=== PATIENT | male | born 1985 | race Asian ===

== ENCOUNTER 2018-07-27 11:52 | Emergency (ER) | payer MEDICAID ==
[~2018-07-27] VITALS: Wt 71.2 kg
[2018-07-27 11:55] VITALS: BP 139/84; PULSE 82; RESP 18
--- NOTE | 2018-07-27 14:16 | ERD ---
ER Documentation Chief Complaint Chief Complaint FELL WHILE PLAYING BASKETBALL, HIT NOSE AND CHEST HPI 33-year-old male, presents to the emergency department, for evaluation of facial injuries that occurred today at 9 AM while the patient was playing basketball. Medications taken: None. the patient denies Loss of consciousness. ROS All systems reviewed and are negative except as per history of present illness. Medications Home Meds Active Scripts Acetaminophen* (Tylenol*) 325 Mg Tablet, 2 TAB PO Q8 PRN for PAIN AND OR ELEVATED TEMP, #20 TAB Prov:MAC HAHN MD 07/27/18 Ibuprofen* (Motrin*) 400 Mg Tab, 400 MG PO Q6H PRN for PAIN AND OR ELEVATED TEMP, #20 TAB Prov:MAC HAHN MD 07/27/18 Allergies Allergies: Coded Allergies: No Known Allergy (Unverified , 07/27/18) FmHx Family History: diabetes, coronary disease Physical Exam Vitals Vital Signs Date Temp Pulse Resp B/P (MAP) Pulse Ox O2 O2 Flow FiO2 Time Delivery Rate 07/27/18 98.1 82 18 139/84 99 11:55 (102) Physical Exam Const: No acute distress Head: Atraumatic Eyes: Normal Conjunctiva ENT: Nasal skin abrasion with edema but no gross deformity, no septal hematoma. No dental injuries. Neck: Full range of motion. No meningismus. Resp: Anterior chest wall tender to palpation, no deformity, no crepitus, no ecchymosis. Lungs clear to auscultation bilaterally Cardio: Regular rate and rhythm, no murmurs Abd: Soft, non tender, non distended. Normal bowel sounds Skin: No petechiae or rashes Back: No midline or flank tenderness Ext: No cyanosis, or edema Neur: Awake and alert Psych: Normal Mood and Affect Results 24 hrs Current Medications Medications Dose Sig/Jaiden Start Time Status Last (Trade) Ordered Route PRN Stop Time Admin Dose Reason Admin 650 mg ONCE ONCE 07/27/18 DC 07/27/18 Acetaminophen PO 14:30 14:36 (Tylenol 07/27/18 14:31 Tab) Ibuprofen 400 mg ONCE ONCE 07/27/18 DC 07/27/18 (Motrin) PO 14:30 14:36 07/27/18 14:31 DIAGNOSTIC IMAGING REPORT Patient: INOCENCIO GILLETTE : 1985 Age: 33 Sex: M MR #: [id number] DOS: 07/27/18 1422 Ordering MD: MAC HAHN MD Location: [facility] Room/Bed: PROCEDURE: XR Chest. CLINICAL INDICATION: Fall, chest pain TECHNIQUE: PA and lateral views of the chest were obtained. COMPARISON: None available FINDINGS: The cardiomediastinal silhouette is within normal limits. The lungs are clear. No pleural effusion or pneumothorax is identified. The visualized osseous structures are intact. IMPRESSION: No evidence of active cardiopulmonary disease. RPTAT: VV .Sheldon Gordon MD, MD Date Time Electronically viewed and signed by .Sheldon Gordon MD, MD on 07/27/2018 15:21 .O/ CC: MAC HAHN MD [id number] DIAGNOSTIC IMAGING REPORT Patient: INOCENCIO GILLETTE : 1985 Age: 33 Sex: M MR #: [id number] DOS: 07/27/18 1422 Ordering MD: MAC HAHN MD Location: [facility] Room/Bed: PROCEDURE: XR nasal bones CLINICAL INDICATION: Fall, nasal trauma/injury TECHNIQUE: 3 views of the nasal bones were obtained COMPARISON: None available FINDINGS: No acute fracture is identified. Nasal septum is grossly midline. No soft tissue gas, radiopaque foreign body is seen. IMPRESSION: No acute fracture identified. RPTAT: VV .Sheldon Gordon MD, MD Date Time Electronically viewed and signed by .Sheldon Gordon MD, MD on 07/27/2018 15:21 .O/ CC: MAC HAHN MD [id number] Procedures/MDM Differential diagnosis include but not limited to: Soft tissue contusion, sprain/strain, muscle spasm, fracture. Neurovascular exam grossly intact. no clinical findings suggestive of fracture, no acute deformity, no edema, no rashes. Physical examination and clinical presentation consistent most likely with mechanical fall without major injury. During the ED course the patient remained stable, without complaints. Results and clinical impression discussed with patient who agrees with managem ent. The patient is stable to be treated outpatient and will be discharged home with recommendations and close monitoring The patient was instructed to follow up with the primary care provider in the next 48h. If symptoms persist, worsen or new symptoms develop, then patient should return to the ED immediately. Instructions explained and given to patient with acknowledgment and demonstrated understanding. Disclaimer: Inadvertent spelling and grammatical errors are likely due to EHR/dictation software use and do not reflect on the overall quality of patient care. Also, please note that the electronic time recorded on this note does not necessarily reflect the actual time of the patient encounter. Departure Diagnosis: Primary Impression: Fall Additional Impression: Facial injury Condition: Stable Additional Instructions: Thank you very much for allowing us to participate in your care. Your health and safety is our top priority at [facility]. Call your primary care doctor TOMORROW for an appointment during the next 2-4 days and bring all the information and medications prescribed. Have prescriptions filled and follow precisely the directions on the label. If the symptoms get worse and your provider is unavailable, return to the [facility] Department immediately. MAC HAHN MD Jul 27, 2018 14:16
[2018-07-27] MEDS ORDERED: ACETAMINOPHEN 325 MG TAB PO ONE (14:30)
[2018-07-27] MEDS ORDERED: IBUPROFEN 200 MG TAB PO ONE (14:30)
[2018-07-27] MEDS ORDERED: IBUP-1561 PO (15:28)
[2018-07-27] MEDS ORDERED: ACET325T33 PO (15:28)
== END 2018-07-27 15:45 | disposition home or self-care (01) ==
LOC: FTE 11:52
DX: S00.31XA Abrasion of nose, initial encounter (principal); W18.00XA Striking against unspecified object with subsequent fall, initial encounter; Y92.310 Basketball court as the place of occurrence of the external cause
CPT/HCPCS: 70160; 71046; Z7502; Z7610